=== PATIENT | male | born 1985 | race Caucasian/White ===

== ENCOUNTER 2017-05-24 01:35 | Emergency (ER) | payer SELFPAY ==
[~2017-05-24] VITALS: Ht 180.3 cm; Wt 65.8 kg
[2017-05-24] MEDS ORDERED: IBUPROFEN (01:52)
[2017-05-24] MEDS ORDERED: HYDROCODONE/APAP 5-325MG TABLET PO ONE (02:00)
[2017-05-24] MEDS ORDERED: NEOMY/BACITRA/POLYMYXIN B OINT UD PACKET TP ONE ×2 (02:00→02:10)
[2017-05-24] MEDS ORDERED: LET TOPICAL SOLUTION 8 ML UDC TP ONE (02:00)
[2017-05-24] MEDS ORDERED: LET TOPICAL SOLUTION 8 ML UDC ONE (02:10)
[2017-05-24] MEDS ORDERED: HYDROCODONE/APAP 5-325MG TABLET ONE (02:10)
[2017-05-24] MEDS ORDERED: SULFAMETH/TRIMETH 800/160 MG TABLET PO ONE (02:45)
[2017-05-24] MEDS ORDERED: MORPHINE SULFATE 4 MG/1 ML DISP.SYRIN IM ONE (02:45)
[2017-05-24] MEDS ORDERED: ONDANSETRON 4 MG/2 ML VIAL IM ONE (02:45)
[2017-05-24] MEDS ORDERED: CEPHALEXIN MONOHYDRATE 500 MG CAPSULE PO ONE (02:45)
--- NOTE | 2017-05-24 02:53 | NUR ---
Patient discharged to home in stable conditon. Written and verbal after care instructions given. Patient verbalizes understanding of instructions.
[2017-05-24] MEDS ORDERED: MORPHINE SULFATE 4 MG/1 ML DISP.SYRIN ONE (02:56)
[2017-05-24] MEDS ORDERED: ONDANSETRON 4 MG/2 ML VIAL ONE (02:56)
[2017-05-24] MEDS ORDERED: SULFAMETH/TRIMETH 800/160 MG TABLET ONE (03:06)
== END 2017-05-24 03:00 | disposition home or self-care (01) ==
LOC: ER 01:38
DX: S80.851A Superficial foreign body, right lower leg, initial encounter (principal); Z88.1 Allergy status to other antibiotic agents; W22.8XXA Striking against or struck by other objects, initial encounter; Y93.39 Activity, other involving climbing, rappelling and jumping off; Y92.89 Other specified places as the place of occurrence of the external cause; Y99.8 Other external cause status
CPT/HCPCS: 10060; 73590; 96372 ×2; 99284; A4663; J2270; J2405